=== PATIENT | male | born 1955 | race Hispanic/Latino ===

== ENCOUNTER 2024-07-18 07:09 | Day surgery (SDC) | payer OTHER ==
[2024-07-14 12:18] LABS: Absolute Lymphocytes (CBC) 1.4 K/uL (0.7-4.9); Absolute Monocytes 0.5 K/uL (0.1-1.3); Basophils % 0.3 % (0-1.3); Eosinophils % 0.1 % (0-4.4); Hematocrit 40.1 % (39.6-49.0); Lymphocytes % 15.8 % (15.3-44.8); MCH 28.7 pg (27.0-35.0); MCHC 32.3 g/dL (32.0-36.0); MCV 88.9 fL (80-100); MPV 8.1 fL (7.6-11.3); Monocytes % 5.8 % (3.3-12.3); Platelets 234 thou/uL (152-406); RBC Red Blood Cell Count 4.51 M/uL (4.33-5.43); Red Cell Distribution Width 14.5 % (12.1-15.2)
[2024-07-14 12:36] LABS: Anion Gap 9.2 mEq/L (5.0-15.0); Potassium 4.2 mEq/L (3.5-5.1)
--- NOTE | 2024-07-16 14:57 | EKG ---
Test Date: 2024-07-14 Test Time: 12:00:53 Certified Scrum Master: LETICIA MEASUREMENT RESULTS: Intervals: Rate: 49 WI: 146 QRSD: 94 QT: 444 QTc: 401 [place]: P: 69 WI: 146 QRS: 44 T: 56 INTERPRETIVE STATEMENTS: Marked sinus bradycardia Abnormal ECG No previous ECG available for comparison Electronically Signed On 07-16-24 14:48:33 CDT by Moises Griffiths
[2024-07-18] MEDS: NA CHLORIDE 0.9% 1,000 ML ONE (07:30)
[2024-07-18] MEDS: OXYMETAZOLINE HCL 0.05% 15ML NAS ONE (07:43)
[2024-07-18] MEDS ORDERED: OXYMETAZOLINE HCL 0.05% 15ML NAS ONE (07:59)
[2024-07-18] MEDS ORDERED: FENTANYL CITR 100 MCG/2 ML ONE (08:09)
[2024-07-18] MEDS ORDERED: ROCURONIUM 50 MG/5 ML VIAL IV ONE (08:09)
[2024-07-18] MEDS ORDERED: dexAMETHasone 10 MG/ML VIAL ONE (08:09)
[2024-07-18] MEDS ORDERED: propofoL 200 MG/20 ML VIAL IV ONE (08:09)
[2024-07-18] MEDS ORDERED: ONDANSETRON 4 MG/2 ML VIAL ONE (08:09)
[2024-07-18] MEDS ORDERED: LIDOCAINE 1% MPF 5 ML VIAL ONE (08:09)
[2024-07-18] MEDS ORDERED: MIDAZOLAM HCL 2 MG/2 ML INJ ONE (08:09)
[2024-07-18] MEDS: LIDOCAINE HCL/EPINEPHRINE 20 ML MDV ONE (08:45)
[2024-07-18] MEDS: HYDROMORPHONE HCL 1 MG/ML INJ ONE ×2 (10:26→10:36)
--- NOTE | 2024-07-18 10:59 | P.OP ---
Date of Service: 07/18/24 Preoperative Diagnosis: Chronic maxillary sinusitis, nasal obstruction, septal deviation, inferior turbinate hypertrophy Postoperative diagnosis: Same Procedure: Septoplasty, nasal endoscopy with bilateral maxillary antrostomy and submucous submucosal cauterization/inferior turbinate reduction Surgeon: Erma Grant MD Activities Therapist: None Indication for procedure: The patient had persistent symptoms despite maximal medical therapy including trial with intranasal steroid spray and allergy medications.. The risks, benefits, and alternatives to surgical procedure were discussed with the patient and/or family and they agreed to proceed. Surgical findings: Anterior cartilaginous septal deviation with posterior bony septal deviation and spur. IV Fluids: Crystalloid, anesthesia record Implants/Packing: Posisep resorbable sinus dressing to the bilateral middle meatus and nasal cavity Estimated Blood Loss: 15 mL Complications: None Description of procedure in detail: The patient was brought to the operating room. They were placed under general anesthesia via oral endotracheal tube. The head of bed was turned 90 degrees. The nasal hairs were trimmed. The nasal cavity was examined with the nasal speculum and headlight with the following findings: Significant left septal deviation with anterior deviation and inferior septal spur. The nasal cavity was packed with Afrin-soaked pledgets in preparation for the procedure. The patient was draped in a standard fashion for nasal surgery. A 0 degree endoscope was then used to perform a nasal endoscopy with notable findings of significant narrowing of the left nasal cavity with wide middle turbinate. Photo documentation was obtained. The right and left uncinate was injected with about 1ml total of 1% lidocaine with epinephrine. The right middle turbinate was medialized with a freer and the uncinate process was removed with a backbiter and 90 degree Blakesley. Using the 30 degree rigid scope, the antrostomy was visualized and further enlarged by the left tissue using a 90 degree Blakesley to ensure encompass meant of the natural ostium. Bleeding was minimal to mild and Afrin-soaked pledgets were packed into the middle meatus to aid in hemostasis. The left side was then visualized the nasal cavity was too narrow to allow adequate access to the middle meatus and the septoplasty was performed. Seeing a headlight and nasal speculum visualization, the nasal septum was injected with an additional 6 mL of 1% lidocaine with epinephrine. A right transfixion incision was made through the nasal mucosa and the caudal aspect of the septal cartilage was identified. Mucoperichondrial flaps were elevated using a caudal elevator taking care to avoid trauma to the mucosa. The right flap was elevated without difficulty. The left flap had some minor tear and trauma especially over the edge of the spur. The cartilage and bone of the septum had been adequately freed from mucosal attachments and incision was made approximately 1.5 cm from the caudal aspect of the cartilage ensuring a appropriate L strut. The José rongeurs were used to remove fragments of bone from the upper portion of the septum allowing better medialization of the septum superiorly which allowed access to the middle meatus. Additionally the Casey-Cut Blakesley and José rongeurs were used to remove the bony spur. This allowed the septum to sit approximately midline with only mild anterior left deviation due to the curvature of the L strut cartilage. The 0 degree endoscope was then used to perform a nasal endoscopy on the left side. The left middle turbinate was medialized with a [place] and the uncinate process was removed using a backbiter and 90 degree Blakesley. The 30 degree rigid scope was then used to better visualize the antrostomy and further enlargement of the antrostomy was made using a side-biting forcep with tissue removal performed using the 90 degree and straight Blakesley. This resulted in significant enlargement and improvement in the maxillary sinus outflow tract. Bleeding was minimal. All pledgets were removed and count was verified. The hemitransfixion incision was closed using running suture. A resorbable suture on a small Dheeraj needle was used to perform a quilting suture in order to reapproximate the mucosal septal flaps and there was no significant bleeding. A unprotected needlepoint Bovie was used to perform submucosal cauterization of the right and left inferior turbinates. Each turbinate was treated in the supe rior mid and inferior aspect with cauterization applied for approximately 10 seconds at each location. No immediate significant bleeding or other complication was noted. Nasopharynx was suctioned. The right and left nasal cavity was then packed using a resorbable Posisep hemostatic dressing. The dressings were then soaked thoroughly with sterile saline. The previously placed orogastric tube was placed on suction for removal of stomach contents. There was no significant blood noted in the oropharynx. The patient was returned to care of anesthesia for awakening extubation in the operating room which proceeded without difficulty. The patient was transported to the recovery room and will be discharged home later today in the care of their family. The patient is given written and verbal instructions regarding the importance of saline irrigations and nasal precautions.
[2024-07-18] MEDS: TRAMADOL HCL 50 MG TAB ONE (11:22)
[2024-07-18 11:32] VITALS: BP 162/76; O2SAT 98
[2024-07-18 13:00] VITALS: TEMP 97.3
== END 2024-07-18 12:15 | disposition home or self-care (01) ==
LOC: OR 07:09
PROVIDERS: ATTEND Otolaryngology
PROC: 099Q8ZZ Drainage of Right Maxillary Sinus, Via Natural or Artificial Opening Endoscopic (ICD-10-PCS; 2024-07-18)
PROC: 09SM0ZZ Reposition Nasal Septum, Open Approach (ICD-10-PCS; principal; 2024-07-18 08:30)
PROC: 099R8ZZ Drainage of Left Maxillary Sinus, Via Natural or Artificial Opening Endoscopic (ICD-10-PCS; 2024-07-18 08:30)
DX: J32.0 Chronic maxillary sinusitis (principal); J34.3 Hypertrophy of nasal turbinates; J34.2 Deviated nasal septum; J34.89 Other specified disorders of nose and nasal sinuses
CPT/HCPCS: 30520; 30140; 31256; 93005; 85025; 80048; 36415; 82947 ×2; 88305; 88311; J2704; J2003; J2250; J3010; J1100; J1171 ×2; J2405; J7030; 88304